=== PATIENT | male | born 1955 | race Caucasian/White ===

== ENCOUNTER 2016-11-15 10:54 | Inpatient (IN) | payer OTHER ==
[~2016-11-15 10:54] MED LIST: ALBUTEROL SULF8.5 G2 IH; ALPRAZOLAM0.25 M3 PO; AMOXICILLIN875 M1 PO; ATORVASTATIN CA10 M1 PO; CORTISPORIN-TC10 M2 OT; ESCITALOPRAM OXA5 M1 PO; HYDROCHLOROTHIA25 M1 PO; OMEPRAZOLE40 M2 PO; PROAIR HFA8.5 GM INH; SYMBICORT 160-1 PUFF INH; TYLENOL325 M2 PO
[2016-11-15] MEDS ORDERED: XANAX0.25 M1 PO (11:07)
[2016-11-15] MEDS ORDERED: POTASSIUM CHLO20 ME3 PO (11:11)
[2016-11-15] MEDS ORDERED: CARBOPLATIN150 MG IV (11:26)
[2016-11-15] MEDS ORDERED: PROCRIT40000 UNIT SC (11:28)
[2016-11-15] MEDS ORDERED: DEXAMETHAS10 MG/1 M1 IV (11:28)
[2016-11-15] MEDS ORDERED: ALOXI0.25 MG/5 IV (11:29)
[2016-11-15] MEDS ORDERED: NEULASTA6 MG/0.6 M SC (11:30)
[2016-11-15] MEDS ORDERED: COMPAZINE10 MG PO (11:33)
[2016-11-15] MEDS ORDERED: ABRAXANE100 MG/20 IV (11:34)
[2016-11-15 11:36] LABS: BASO % 0.1 % (0-2); EOS % 0.5 % (0-7); EOSINOPHIL ABSOLUTE COUNT 0.1 tho/cmm (0.0-0.7); HCT-HEMATOCRIT 33.7 % (36.0-53.5); HGB-HEMOGLOBIN 11.3 gm/dl (13.5-17.0); IMMATURE GRANULOCYTES ABSOLUTE 0.11 tho/cmm (0-0.03); IMMATURE GRANULOCYTES PERCENT 0.6 % (0-0.3); INR 1.1 INR (0.9-1.1); LYMPH % 8.5 % (20-45); LYMPH ABSOLUTE COUNT 1.6 tho/cmm (0.8-4.5); MCH (MEAN CORPUSCULAR HGB) 33.8 pg (28.0-32.0); MCHC MEAN CORPUSCULAR HGB CONC 33.5 % (32.0-36.0); MCV (MEAN CELL VOLUME) 100.9 fl (82.0-96.0); MEAN PLATELET VOLUME 9.7 cmc (9.4-12.4); MONOCYTE ABSOLUTE COUNT 1.5 tho/cmm (0.0-1.2); NEUTROPHIL ABSOLUTE COUNT 15.4 tho/cmm (1.6-8.0); NEUTROPHIL-AUTOMATED 15.4 tho/cmm (1.6-8.0); NEUTROPHILS % 82.3 % (40-80); PLATELET COUNT 409 tho/cmm (150-450); PROTHROMBIN TIME 12.5 SECONDS (9.0-13.6); RED BLOOD COUNT 3.34 mil/cmm (4.40-5.70); RED CELL DISTRIBUTION WIDTH 14.9 % (12.4-16.4); WHITE BLOOD COUNT 18.7 tho/cmm (4.0-10.0)
[2016-11-15 11:52] LABS: ALCOHOL (ETOH) <10 mg/dl (<10)
[2016-11-15 11:53] LABS: ALB/GLOB RATIO 0.8 (0.8-2.0); ALBUMIN 3.2 g/dl (3.5-5.0); ALKALINE PHOSPHATASE 137 U/L (33-138); ALT/SGPT 14 U/L (12-78); ANION GAP 14 mmol/L (0-20); AST/SGOT 11 U/L (10-40); BILIRUBIN,TOTAL 0.5 mg/dl (0.0-1.5); BLOOD UREA NITROGEN 12 mg/dl (6-24); CALCIUM 8.6 mg/dl (8.5-10.5); CARBON DIOXIDE-VENOUS 26 mmol/L (22-32); CHLORIDE 101 mmol/l (96-110); CREATININE 1.13 mg/dl (0.60-1.30); GLUCOSE 102 mg/dL (70-110); POTASSIUM 4.2 mmol/L (3.7-5.1); SODIUM 137 mmol/L (135-145); eGFR VALUE FOR BLACK 83 mL/Min
[2016-11-15 12:08] LABS: WBC MORPHOLOGY TOXIC GRANULATION
[2016-11-15 12:10] LABS: PROCALCITONIN 0.15 ng/ml (0.05-0.09)
[2016-11-15 15:26] LABS: URINE BILIRUBIN NEGATIVE (NEG); URINE BLOOD NEGATIVE (NEG); URINE GLUCOSE (UA) NEGATIVE (NEG); URINE KETONE NEGATIVE (NEG); URINE LEUKOCYTE ESTERASE NEGATIVE (NEG); URINE NITRITE NEGATIVE (NEG); URINE PROTEIN NEGATIVE (NEG)
[2016-11-15 15:41] LABS: URINE APPEARANCE CLEAR; URINE COLOR PALE YELLOW
[2016-11-16 06:10] LABS: BASO % 0.2 % (0-2); EOS % 0.8 % (0-7); EOSINOPHIL ABSOLUTE COUNT 0.1 tho/cmm (0.0-0.7); HCT-HEMATOCRIT 28.8 % (36.0-53.5); HGB-HEMOGLOBIN 9.8 gm/dl (13.5-17.0); IMMATURE GRANULOCYTES ABSOLUTE 0.08 tho/cmm (0-0.03); IMMATURE GRANULOCYTES PERCENT 0.5 % (0-0.3); LYMPH ABSOLUTE COUNT 1.5 tho/cmm (0.8-4.5); MCH (MEAN CORPUSCULAR HGB) 33.9 pg (28.0-32.0); MCV (MEAN CELL VOLUME) 99.7 fl (82.0-96.0); MEAN PLATELET VOLUME 9.7 cmc (9.4-12.4); MONO % 8.1 % (0-12); MONOCYTE ABSOLUTE COUNT 1.3 tho/cmm (0.0-1.2); NEUTROPHIL ABSOLUTE COUNT 13.1 tho/cmm (1.6-8.0); NEUTROPHIL-AUTOMATED 13.1 tho/cmm (1.6-8.0); NEUTROPHILS % 81.4 % (40-80); PLATELET COUNT 415 tho/cmm (150-450); RED BLOOD COUNT 2.89 mil/cmm (4.40-5.70); RED CELL DISTRIBUTION WIDTH 14.7 % (12.4-16.4); WHITE BLOOD COUNT 16.1 tho/cmm (4.0-10.0)
[2016-11-16 06:25] LABS: ANION GAP 13 mmol/L (0-20); BLOOD UREA NITROGEN 9 mg/dl (6-24); CALCIUM 7.9 mg/dl (8.5-10.5); CARBON DIOXIDE-VENOUS 25 mmol/L (22-32); CHLORIDE 104 mmol/l (96-110); CREATININE 1.07 mg/dl (0.60-1.30); GLUCOSE 114 mg/dL (70-110); POTASSIUM 3.7 mmol/L (3.7-5.1); SODIUM 138 mmol/L (135-145); eGFR VALUE FOR BLACK 88 mL/Min
[2016-11-16] MEDS ORDERED: AUGMENTIN 875-1 EAC2 PO (16:22)
[2016-11-16] MEDS ORDERED: STOP THE FOLLOWING (16:26)
[2016-11-16] MEDS ORDERED: ZITHROMAX250 M1 PO (16:43)
[2017-03-25] MEDS ORDERED: HYDROCODON-ACE1 EA17 PO (08:14)
== END 2016-11-16 17:06 | disposition left against medical advice (07) | DRG 871 ==
LOC: EDMED 10:54 → EMR2 14:57 → 5WD 17:10
PROVIDERS: Emergency Medicine; Physician Assistant; ADMIT Hospitalist
DX: A41.9 Sepsis, unspecified organism (principal); J18.9 Pneumonia, unspecified organism; G93.40 Encephalopathy, unspecified; C79.89 Secondary malignant neoplasm of other specified sites; C09.9 Malignant neoplasm of tonsil, unspecified; D64.81 Anemia due to antineoplastic chemotherapy; I10 Essential (primary) hypertension; J44.9 Chronic obstructive pulmonary disease, unspecified; E78.5 Hyperlipidemia, unspecified; K21.9 Gastro-esophageal reflux disease without esophagitis; F40.240 Claustrophobia; F41.9 Anxiety disorder, unspecified; R65.20 Severe sepsis without septic shock; F17.200 Nicotine dependence, unspecified, uncomplicated
CPT/HCPCS: G0480; G8978-GP-CH; G8979-GP-CH; G8980-GP-CH; J0456; J1650; J2060; J2543; J3370; J7030; J7050; Q9967